=== PATIENT | female | born 1965 | race Caucasian/White ===

== ENCOUNTER 2016-12-15 07:42 | Emergency (ER) | payer OTHER ==
[~2016-12-15 07:42] MED LIST: GABAPENTIN300 MG PO; INVOKANA100 MG PO; KEPPRA500 MG PO; LEVEMIR100 UNIT/1 SC; LISINOPRIL20 MG PO; LOVASTATIN20 MG PO; NORCO 5-325 TA1 EACH PO; XARELTO15 MG PO; XARELTO20 MG PO; ZOLOFT100 MG PO
[2016-12-15 08:43] LABS: BASOPHIL 0.1 % (0-2); EOSINOPHIL 3.4 % (0-5); HCT 36.5 % (37.0-47.0); HGB 12.1 g/dl (12.5-16.0); LYMPHOCYTE 25.6 % (15-48); MCH 28.7 pg (25.0-31.0); MCHC 33.2 g/dL (32.0-36.0); MCV 86.5 fL (78.0-100.0); MONOCYTE 8.9 % (0-12); MPV 9.3 fL (6.0-9.5); PLT 253 K/uL (150-400); RBC 4.22 M/uL (4.20-5.40); RDW 13.6 % (11.5-14.0); WBC 7.1 K/uL (4.0-10.5)
[2016-12-15 08:44] LABS: BILIRUBIN NEGATIVE (NEGATIVE); BLOOD NEGATIVE Ery/uL (NEGATIVE); CLARITY CLEAR (CLEAR); COLOR YELLOW (YELLOW); GLUCOSE (U) 1+ mg/dL (NORMAL); KETONE (U) NEGATIVE (NEGATIVE); LEUKOCYTES NEGATIVE Leu/uL (NEGATIVE); NITRITE NEGATIVE (NEGATIVE); PROTEIN NEGATIVE (NEGATIVE); UROBILINOGEN 0.2 mg/dL (0.2-1.0)
[2016-12-15 09:00] LABS: CREATININE 0.6 mg/dL (0.5-1.0); POTASSIUM 4.6 mmol/L (3.5-5.1)
== END 2016-12-15 11:03 | disposition home or self-care (01) ==
LOC: FER 07:42
PROVIDERS: Internal Medicine
DX: K80.20 Calculus of gallbladder without cholecystitis without obstruction (principal); S33.5XXA Sprain of ligaments of lumbar spine, initial encounter; R82.90 Unspecified abnormal findings in urine; E11.40 Type 2 diabetes mellitus with diabetic neuropathy, unspecified; I10 Essential (primary) hypertension; Z87.442 Personal history of urinary calculi; Z88.8 Allergy status to other drugs, medicaments and biological substances
CPT/HCPCS: 36415; 80048; 81003; 85025; 87088; J1170; J1885; J2405

== ENCOUNTER → 2017-02-14 | Day surgery (SDC) | payer OTHER ==
[2017-02-13 11:11] LABS: HGB 12.9 g/dl (12.5-16.0); MCH 28.9 pg (25.0-31.0); MCHC 33.1 g/dL (32.0-36.0); MCV 87.2 fL (78.0-100.0); RBC 4.47 M/uL (4.20-5.40); RDW 13.6 % (11.5-14.0); WBC 6.6 K/uL (4.0-10.5)
[2017-02-13 11:43] LABS: ALBUMIN 4.4 g/dL (3.5-5.0); BILIRUBIN - TOTAL 0.4 mg/dL (0.1-1.0); CREATININE 0.7 mg/dL (0.5-1.0); GLOBULIN (CALCULATION) 3.2 g/dL (2.2-4.2); POTASSIUM 4.4 mmol/L (3.5-5.1); TOTAL PROTEIN 7.6 g/dL (6.4-8.3)
== END | disposition home or self-care (01) ==
LOC: FAS 10:05
PROVIDERS: Surgery
DX: K80.10 Calculus of gallbladder with chronic cholecystitis without obstruction (principal); K21.9 Gastro-esophageal reflux disease without esophagitis; D68.61 Antiphospholipid syndrome; I10 Essential (primary) hypertension; E11.40 Type 2 diabetes mellitus with diabetic neuropathy, unspecified; F41.8 Other specified anxiety disorders; E78.00 Pure hypercholesterolemia, unspecified; E78.5 Hyperlipidemia, unspecified; E55.9 Vitamin D deficiency, unspecified; D64.9 Anemia, unspecified; G40.409 Other generalized epilepsy and epileptic syndromes, not intractable, without status epilepticus; G47.30 Sleep apnea, unspecified; G62.9 Polyneuropathy, unspecified; Z79.4 Long term (current) use of insulin; Z79.899 Other long term (current) drug therapy; Z98.890 Other specified postprocedural states; Z88.8 Allergy status to other drugs, medicaments and biological substances; Z79.01 Long term (current) use of anticoagulants; Z87.442 Personal history of urinary calculi
CPT/HCPCS: 36415; 74300; 80053; 88304; J0690; J1170; J2270; J2405; J2704; J2710; J3010; Q9962

== ENCOUNTER 2020-10-01 18:40 | Emergency (ER) | payer OTHER ==
[~2020-10-01 18:40] MED LIST changes: +ASPIRIN EC81 MG PO; +BASAGLAR K100 UNIT/1 SC; +BENTYL10 MG PO; +DICLOFENAC SODI75 MG PO; +HUMALOG 75100 UNIT/M SC; +HUMALOG100 UNIT/1 SC; +INVOKANA300 MG PO; +LEVEMIR VI100 UNITS/ SC; +LOVASTATIN40 MG PO; +MACROBID100 MG PO; +NEURONTIN800 MG PO; +NORVASC5 MG PO; +PERCOCET 5-3251 EACH PO; +PHENERGAN25 M1 PO; +PRINIVIL20 MG PO; +SINGULAIR10 MG PO; +TOPROL XL 25MG25 MG PO; +VIIBRYD20 MG PO; +ZETIA10 MG PO; +ZOFRAN4 MG PO
[2020-10-01 20:21] LABS: BASOPHIL 0.4 % (0-2); EOSINOPHIL 0.6 % (0-5); HCT 30.6 % (37.0-47.0); HGB 9.7 g/dl (12.5-16.0); LYMPHOCYTE 16.4 % (15-48); MCH 26.9 pg (25.0-31.0); MCHC 31.7 g/dL (32.0-36.0); MONOCYTE 7.8 % (0-12); MPV 9.9 fL (6.0-9.5); NEUTROPHIL 73.7 % (41-80); NRBC 0; PLT 359 K/uL (150-400); RDW 13.1 % (11.5-14.0); WBC 8.1 K/uL (4.0-10.5)
[2020-10-01 20:25] LABS: BILIRUBIN NEGATIVE (NEGATIVE); BLOOD TRACE-INTACT Ery/uL (NEGATIVE); CLARITY CLEAR (CLEAR); COLOR YELLOW (YELLOW); GLUCOSE (U) 2+ mg/dL (NORMAL); LEUKOCYTES NEGATIVE Leu/uL (NEGATIVE); NITRITE NEGATIVE (NEGATIVE); PROTEIN TRACE (LOW) mg/dL (NEGATIVE); SPECIFIC GRAVITY 1.015 (1.001-1.030); UROBILINOGEN 0.2 mg/dL (0.2-1.0)
[2020-10-01 20:33] LABS: BACTERIA TRACE; URINARY WBC RARE
[2020-10-01 20:35] LABS: ALBUMIN 3.8 g/dL (3.4-5.0); BILIRUBIN - TOTAL 0.3 mg/dL (0.2-1.0); BUN/CREAT RATIO (CALC) 17.2 RATIO; CREATININE 1.34 mg/dL (0.51-0.95); GLOBULIN (CALCULATION) 3.8 g/dL; POTASSIUM 3.8 mmol/L (3.5-5.1); TOTAL PROTEIN 7.6 g/dL (6.4-8.2)
[2020-10-01 20:42] LABS: LACTIC ACID 1.2 mmol/L (0.4-1.9)
[2020-10-01] MEDS ORDERED: BENTYL10 MG PO (22:45)
[2020-10-01] MEDS ORDERED: PHENERGAN25 M1 PO (22:45)
[2020-11-14] MEDS ORDERED: MIDODRINE HCL10 MG PO (11:17)
[2020-11-14] MEDS ORDERED: VENLAFAXINE HCL50 MG PO (11:19)
[2020-11-14] MEDS ORDERED: ELIQUIS5 MG PO (11:20)
[2020-11-14] MEDS ORDERED: SEROQUEL 100MG100 MG PO (11:22)
[2020-11-14] MEDS ORDERED: LIPITOR80 MG PO (11:23)
[2020-11-14] MEDS ORDERED: ADMELOG SO100 UNIT/1 SC (11:27)
[2020-11-14] MEDS ORDERED: TRESIBA FL200 UNIT/1 SC (11:29)
[2020-11-16] MEDS ORDERED: PERCOCET 5-3251 EACH PO (07:27)
== END 2020-10-01 23:05 | disposition home or self-care (01) ==
LOC: FER 18:40
PROVIDERS: Emergency Medicine Emergency Medical Services
DX: R11.2 Nausea with vomiting, unspecified (principal); R19.7 Diarrhea, unspecified; R10.84 Generalized abdominal pain; E11.9 Type 2 diabetes mellitus without complications; I10 Essential (primary) hypertension; Z90.49 Acquired absence of other specified parts of digestive tract; Z88.5 Allergy status to narcotic agent; Z88.8 Allergy status to other drugs, medicaments and biological substances
CPT/HCPCS: 36415; 80053; 81001; 83605; 83690; 84145; 85025; J2405; J2550; J7030; Q0169

== ENCOUNTER 2020-11-07 06:55 | Emergency (ER) | payer OTHER ==
[2020-11-07 07:32] LABS: BASOPHIL 0.4 % (0-2); EOSINOPHIL 3.8 % (0-5); HCT 32.7 % (37.0-47.0); HGB 10.2 g/dl (12.5-16.0); LYMPHOCYTE 29.6 % (15-48); MCH 27.9 pg (25.0-31.0); MCHC 31.2 g/dL (32.0-36.0); MCV 89.3 fL (78.0-100.0); MONOCYTE 9.2 % (0-12); MPV 10.1 fL (6.0-9.5); NEUTROPHIL 56.6 % (41-80); NRBC 0; PLT 281 K/uL (150-400); RBC 3.66 M/uL (4.20-5.40); RDW 14.7 % (11.5-14.0); WBC 7.1 K/uL (4.0-10.5)
[2020-11-07 07:39] LABS: INR 1.25 (0.9-1.2); PROTHROMBIN TIME 14.9 SECONDS (11.4-13.6)
[2020-11-07 07:50] LABS: ALBUMIN 3.7 g/dL (3.4-5.0); BILIRUBIN - TOTAL 0.4 mg/dL (0.2-1.0); BUN/CREAT RATIO (CALC) 22.2 RATIO; CREATININE 1.26 mg/dL (0.51-0.95); GLOBULIN (CALCULATION) 3.3 g/dL; POTASSIUM 3.9 mmol/L (3.5-5.1)
[2020-11-07] MEDS ORDERED: NORCO 5-325 TA1 EACH PO (09:25)
[2020-11-14] MEDS ORDERED: MIDODRINE HCL10 MG PO (11:17)
[2020-11-14] MEDS ORDERED: VENLAFAXINE HCL50 MG PO (11:19)
[2020-11-14] MEDS ORDERED: ELIQUIS5 MG PO (11:20)
[2020-11-14] MEDS ORDERED: SEROQUEL 100MG100 MG PO (11:22)
[2020-11-14] MEDS ORDERED: LIPITOR80 MG PO (11:23)
[2020-11-14] MEDS ORDERED: ADMELOG SO100 UNIT/1 SC (11:27)
[2020-11-14] MEDS ORDERED: TRESIBA FL200 UNIT/1 SC (11:29)
[2020-11-16] MEDS ORDERED: PERCOCET 5-3251 EACH PO (07:27)
== END 2020-11-07 10:31 | disposition home or self-care (01) ==
LOC: FER 06:55
PROVIDERS: Emergency Medicine
DX: S82.842A Displaced bimalleolar fracture of left lower leg, initial encounter for closed fracture (principal); E11.9 Type 2 diabetes mellitus without complications; I10 Essential (primary) hypertension; Z88.5 Allergy status to narcotic agent; Z79.4 Long term (current) use of insulin; W19.XXXA Unspecified fall, initial encounter; Y92.009 Unspecified place in unspecified non-institutional (private) residence as the place of occurrence of the external cause
CPT/HCPCS: 27810; 36415; 71045; 73610; 80053; 85025; 85610; 85730; 93005

== ENCOUNTER → 2020-11-16 | Day surgery (SDC) | payer OTHER ==
[~2020-11-16] MED LIST changes: +ADMELOG SO100 UNIT/1 SC; +ELIQUIS5 MG PO; +LIPITOR80 MG PO; +MIDODRINE HCL10 MG PO; +SEROQUEL 100MG100 MG PO; +TRESIBA FL200 UNIT/1 SC; +VENLAFAXINE HCL50 MG PO
[2020-11-16 06:50] LABS: HCT 31.8 % (37.0-47.0); HGB 9.9 g/dl (12.5-16.0); MCH 28.2 pg (25.0-31.0); MCHC 31.1 g/dL (32.0-36.0); MCV 90.6 fL (78.0-100.0); MPV 9.8 fL (6.0-9.5); RBC 3.51 M/uL (4.20-5.40); RDW 13.9 % (11.5-14.0); WBC 10.5 K/uL (4.0-10.5)
== END | disposition home or self-care (01) ==
LOC: FAS 06:07
PROVIDERS: Anesthesiology
DX: S82.842A Displaced bimalleolar fracture of left lower leg, initial encounter for closed fracture (principal); K21.9 Gastro-esophageal reflux disease without esophagitis; E78.00 Pure hypercholesterolemia, unspecified; I10 Essential (primary) hypertension; D68.61 Antiphospholipid syndrome; W19.XXXA Unspecified fall, initial encounter; Z20.822 Contact with and (suspected) exposure to COVID-19; Z86.69 Personal history of other diseases of the nervous system and sense organs; Z79.899 Other long term (current) drug therapy
CPT/HCPCS: 36415; 73600; 76000; 97116; 97161; C1713; J0690; J0735; J1100; J1885; J2250; J2405; J2704; J2795; J3010; J7120

== ENCOUNTER 2021-10-30 14:04 | Emergency (ER) | payer OTHER ==
[2021-10-30] MEDS ORDERED: CEPHALEXIN500 MG PO (17:31)
== END 2021-10-30 18:32 | disposition home or self-care (01) ==
LOC: FER 14:04
DX: M25.561 Pain in right knee (principal); M79.604 Pain in right leg; R03.0 Elevated blood-pressure reading, without diagnosis of hypertension; E11.40 Type 2 diabetes mellitus with diabetic neuropathy, unspecified; I10 Essential (primary) hypertension; Z86.718 Personal history of other venous thrombosis and embolism; Z79.01 Long term (current) use of anticoagulants; Z79.4 Long term (current) use of insulin; Z79.899 Other long term (current) drug therapy; Z88.5 Allergy status to narcotic agent; Z88.8 Allergy status to other drugs, medicaments and biological substances
CPT/HCPCS: 93971

== ENCOUNTER 2022-05-22 11:44 | Emergency (ER) | payer OTHER ==
[~2022-05-22 11:44] MED LIST changes: +BUSPIRONE HCL15 MG PO; +CEPHALEXIN500 MG PO; +HUMALOG100 UNIT/3 SC
[2022-05-22] MEDS ORDERED: MEDROL 4MG DOSEP4 MG PO (14:36)
[2022-05-22] MEDS ORDERED: CYCLOBENZAPRINE10 MG PO (14:36)
== END 2022-05-22 14:56 | disposition home or self-care (01) ==
LOC: FER 11:44
DX: S46.911A Strain of unspecified muscle, fascia and tendon at shoulder and upper arm level, right arm, initial encounter (principal); I12.9 Hypertensive chronic kidney disease with stage 1 through stage 4 chronic kidney disease, or unspecified chronic kidney disease; E11.22 Type 2 diabetes mellitus with diabetic chronic kidney disease; N18.9 Chronic kidney disease, unspecified; Z88.5 Allergy status to narcotic agent; Z88.8 Allergy status to other drugs, medicaments and biological substances; Z79.899 Other long term (current) drug therapy
CPT/HCPCS: 73030